=== PATIENT | male | born 1990 | race Caucasian/White ===

== ENCOUNTER 2017-11-19 15:48 | Inpatient (IN) | payer OTHER ==
[2017-11-19] MEDS ORDERED: NACL 0.9% 3 ML SYG IV (17:00)
[2017-11-19] MEDS ORDERED: DOCUSATE SODIUM 100 MG CAP PO (17:00)
[2017-11-19] MEDS ORDERED: VANCOMYCIN IV PER PHARMACY XX (17:00)
[2017-11-19] MEDS ORDERED: MAGNESIUM HYDROXIDE 30ML CUP PO (17:00)
[2017-11-19] MEDS ORDERED: ACETAMINOPHEN 325 MG TAB PO (17:00)
[2017-11-19] MEDS ORDERED: morphine 2 MG INJ (17:03)
[2017-11-19] MEDS: ONDANSETRON 4 MG INJ IV (17:05)
[2017-11-19] MEDS: SOD CHLORIDE 0.9% 1,000 ML IV (17:05)
[2017-11-19] MEDS: morphine 2 MG INJ IV ×2 (17:14→21:36)
[2017-11-19] MEDS: LORAZEPAM 2 MG INJ IV (17:51)
[2017-11-19] MEDS: VANCOMYCIN 2 GM in SOD CHLORIDE 0.9% 500 ML IVPB (18:22)
[2017-11-19 18:32] LABS: CREATININE 1.17 mg/dl (0.61-1.24)
[2017-11-19 18:32] LABS: BLOOD UREA NITROGEN 21 mg/dl (7-20)
[2017-11-19] MEDS: NICOTINE (21 MG/24 HR) PATCH TRANSDERM (21:34)
[2017-11-20] MEDS: LORAZEPAM 2 MG INJ IV ×2 (01:03→11:45)
[2017-11-20] MEDS: SOD CHLORIDE 0.9% 1,000 ML IV ×2 (03:00→11:56)
[2017-11-20] MEDS: VANCOMYCIN 1 GM 250 ML IVPB ×2 (03:59→11:56)
[2017-11-20 06:07] LABS: ADD MAN DIFF? NO
[2017-11-20 06:12] LABS: WHITE BLOOD COUNT 4.1 10^3/ul (4.8-10.8)
[2017-11-20 06:12] LABS: ABNORMAL IP MESSAGE 1; BASOPHILS % 0.5 % (0.0-2.0); EOSINOPHILS # 0.2 10^3/ul (0.0-0.5); EOSINOPHILS % 4.4 % (0.0-7.0); HEMATOCRIT 27.4 % (42.0-52.0); HEMOGLOBIN 9.1 g/dl (14.0-18.0); LYMPHOCYTES # 1.1 10^3/ul (0.8-2.9); LYMPHOCYTES % 25.9 % (15.0-51.0); MEAN CORPUSCULAR HEMOGLOBIN 28.9 pg (29.0-33.0); MEAN CORPUSCULAR HGB CONC 33.2 g/dl (32.0-37.0); MEAN PLATELET VOLUME 9.7 fl (7.4-10.4); MONOCYTE # 0.5 10^3/ul (0.3-0.9); MONOCYTES % 11.8 % (0.0-11.0); NEUTROPHIL # 2.3 10^3/ul (1.6-7.5); NEUTROPHILS % 57.2 % (39.0-77.0); PLATELET COUNT 63 10^3/UL (140-415); POSITIVE DIFF @See below; RED BLOOD COUNT 3.15 10^6/ul (4.70-6.10); RED CELL DISTRIBUTION WIDTH 17.5 % (11.5-14.5)
[2017-11-20 06:39] LABS: ALANINE AMINOTRANSFERASE 55 IU/L (13-69); ALBUMIN 3.4 g/dl (3.3-4.9); ALBUMIN/GLOBULIN RATIO 0.89; ALKALINE PHOSPHATASE 130 IU/L (42-121); ANION GAP 14 (8-16); ASPARTATE AMINO TRANSFERASE 171 IU/L (15-46); BLOOD UREA NITROGEN 15 mg/dl (7-20); CALCIUM 9.2 mg/dl (8.4-10.2); CARBON DIOXIDE 24 mmol/L (21-31); CHLORIDE 109 mmol/L (97-110); GLUCOSE 88 mg/dl (70-220); MAGNESIUM 1.7 mg/dl (1.7-2.5); PHOSPHORUS 4.8 mg/dl (2.5-4.9); SODIUM 142 mmol/L (135-144); TOTAL PROTEIN 7.2 g/dl (6.1-8.1)
[2017-11-20 06:54] LABS: HEMOGLOBIN A1C 4.8 % (0-5.9)
[2017-11-20] MEDS: morphine 2 MG INJ IV (08:41)
[2017-11-20] MEDS: ENOXAPARIN 40 MG/0.4 ML SYG SC (08:44)
[2017-11-20] MEDS: NICOTINE (21 MG/24 HR) PATCH TRANSDERM (08:45)
[2017-11-20] MEDS: HYDROCODONE/APAP (5/325) TAB PO ×2 (15:43→21:18)
[2017-11-20] MEDS ORDERED: HYDROCODONE/APAP (5/325) TAB PO (16:00)
[2017-11-20] MEDS: ALPRAZOLAM 0.25 MG TAB PO (16:58)
[2017-11-21] MEDS: ALPRAZOLAM 0.25 MG TAB PO ×3 (03:35→22:27)
[2017-11-21 05:40] LABS: ADD MAN DIFF? NO
[2017-11-21 05:43] LABS: ABNORMAL IP MESSAGE 1; BASOPHILS % 0.5 % (0.0-2.0); EOSINOPHILS # 0.2 10^3/ul (0.0-0.5); EOSINOPHILS % 4.1 % (0.0-7.0); HEMATOCRIT 24.3 % (42.0-52.0); HEMOGLOBIN 7.9 g/dl (14.0-18.0); LYMPHOCYTES # 1.1 10^3/ul (0.8-2.9); LYMPHOCYTES % 27.6 % (15.0-51.0); MEAN CORPUSCULAR HEMOGLOBIN 28.2 pg (29.0-33.0); MEAN CORPUSCULAR HGB CONC 32.5 g/dl (32.0-37.0); MEAN CORPUSCULAR VOLUME 86.8 fl (82.0-101.0); MEAN PLATELET VOLUME 9.7 fl (7.4-10.4); MONOCYTE # 0.5 10^3/ul (0.3-0.9); MONOCYTES % 11.6 % (0.0-11.0); NEUTROPHIL # 2.2 10^3/ul (1.6-7.5); NEUTROPHILS % 55.9 % (39.0-77.0); PLATELET COUNT 61 10^3/UL (140-415); POSITIVE DIFF @See below; RED CELL DISTRIBUTION WIDTH 17.3 % (11.5-14.5)
[2017-11-21 05:43] LABS: WHITE BLOOD COUNT 3.9 10^3/ul (4.8-10.8)
[2017-11-21 05:59] LABS: ALANINE AMINOTRANSFERASE 55 IU/L (13-69); ALBUMIN 3.3 g/dl (3.3-4.9); ALBUMIN/GLOBULIN RATIO 0.91; ALKALINE PHOSPHATASE 147 IU/L (42-121); ANION GAP 16 (8-16); ASPARTATE AMINO TRANSFERASE 151 IU/L (15-46); BILIRUBIN,INDIRECT 0.8 mg/dl (0-1.1); BILIRUBIN,TOTAL 0.8 mg/dl (0.2-1.3); BLOOD UREA NITROGEN 15 mg/dl (7-20); CALCIUM 9.1 mg/dl (8.4-10.2); CARBON DIOXIDE 25 mmol/L (21-31); CHLORIDE 107 mmol/L (97-110); CREATININE 0.83 mg/dl (0.61-1.24); GLUCOSE 78 mg/dl (70-220); POTASSIUM 4.4 mmol/L (3.5-5.1); SODIUM 144 mmol/L (135-144); TOTAL PROTEIN 6.9 g/dl (6.1-8.1)
[2017-11-21] MEDS: HYDROCODONE/APAP (5/325) TAB PO ×3 (06:12→18:38)
[2017-11-21] MEDS: NICOTINE (21 MG/24 HR) PATCH TRANSDERM (08:43)
[2017-11-21] MEDS: DULOXETINE 30 MG CAP DR PO (11:10)
[2017-11-21] MEDS: morphine 2 MG INJ IV ×2 (15:54→20:32)
[2017-11-21 16:35] LABS: URIC ACID 4.3 mg/dl (3.1-7.9)
[2017-11-21] MEDS: CEPHALEXIN 500 MG CAP PO (17:43)
[2017-11-22] MEDS: CEPHALEXIN 500 MG CAP PO ×3 (00:33→11:16)
[2017-11-22] MEDS: morphine 2 MG INJ IV ×3 (00:33→08:21)
[2017-11-22 06:14] LABS: ADD MAN DIFF? NO
[2017-11-22 06:18] LABS: ABNORMAL IP MESSAGE 1; BASOPHILS % 0.9 % (0.0-2.0); EOSINOPHILS # 0.2 10^3/ul (0.0-0.5); EOSINOPHILS % 4.8 % (0.0-7.0); HEMATOCRIT 25.1 % (42.0-52.0); HEMOGLOBIN 8.4 g/dl (14.0-18.0); LYMPHOCYTES # 1.1 10^3/ul (0.8-2.9); LYMPHOCYTES % 30.2 % (15.0-51.0); MEAN CORPUSCULAR HEMOGLOBIN 29.3 pg (29.0-33.0); MEAN CORPUSCULAR HGB CONC 33.5 g/dl (32.0-37.0); MEAN CORPUSCULAR VOLUME 87.5 fl (82.0-101.0); MEAN PLATELET VOLUME 10.7 fl (7.4-10.4); MONOCYTE # 0.3 10^3/ul (0.3-0.9); MONOCYTES % 9.4 % (0.0-11.0); NEUTROPHIL # 1.9 10^3/ul (1.6-7.5); NEUTROPHILS % 54.4 % (39.0-77.0); PLATELET COUNT 62 10^3/UL (140-415); POSITIVE DIFF @See below; RED BLOOD COUNT 2.87 10^6/ul (4.70-6.10); RED CELL DISTRIBUTION WIDTH 17.3 % (11.5-14.5)
[2017-11-22 06:18] LABS: WHITE BLOOD COUNT 3.5 10^3/ul (4.8-10.8)
[2017-11-22] MEDS: NICOTINE (21 MG/24 HR) PATCH TRANSDERM (08:17)
[2017-11-22] MEDS: DULOXETINE 30 MG CAP DR PO (08:17)
[2017-11-22] MEDS: FOLIC ACID 1 MG TAB PO (09:30)
[2017-11-22] MEDS: METHADONE 5 MG TAB PO (09:30)
[2017-11-22] MEDS: THIAMINE 100 MG TAB PO (09:30)
[2017-11-22] MEDS: HYDROCODONE/APAP (5/325) TAB PO (10:06)
[2017-11-22 10:14] LABS: HEPATITIS B SURFACE ANTIGEN NEGATIVE (NEGATIVE)
[2017-11-22 10:31] LABS: HEPATITIS C VIRAL ANTIBODY NEGATIVE (NEGATIVE)
[2017-11-22] MEDS: ALPRAZOLAM 0.25 MG TAB PO (11:16)
[2017-11-22] MEDS: CYANOCOBALAMIN 1000 MCG INJ IM (11:16)
== END 2017-11-22 13:15 | disposition left against medical advice (07) | DRG 603 ==
LOC: PP2 15:48
PROVIDERS: Internal Medicine
DX: L03.116 Cellulitis of left lower limb (principal); D61.818 Other pancytopenia; F33.2 Major depressive disorder, recurrent severe without psychotic features; K70.30 Alcoholic cirrhosis of liver without ascites; Z72.0 Tobacco use; G89.4 Chronic pain syndrome; F10.10 Alcohol abuse, uncomplicated
CPT/HCPCS: 80053; 82565; 83036; 83735; 84100; 84520; 84560; 85025; 86708; 86803; 87081; 87340; 93970; G0378

== ENCOUNTER 2017-11-23 19:08 | Emergency (ER) | payer OTHER ==
[2017-11-23] MEDS: FAMOTIDINE 20 MG TAB PO (20:59)
[2017-11-23] MEDS: ONDANSETRON (ODT) 4 MG TAB ODT (20:59)
[2017-11-23 21:20] LABS: ADD MAN DIFF? NO
[2017-11-23 21:21] LABS: WHITE BLOOD COUNT 4.6 10^3/ul (4.8-10.8)
[2017-11-23 21:21] LABS: ABNORMAL IP MESSAGE 1; BASOPHILS % 0.7 % (0.0-2.0); EOSINOPHILS # 0.2 10^3/ul (0.0-0.5); EOSINOPHILS % 3.9 % (0.0-7.0); HEMATOCRIT 27.6 % (42.0-52.0); HEMOGLOBIN 9.2 g/dl (14.0-18.0); LYMPHOCYTES # 1.2 10^3/ul (0.8-2.9); MEAN CORPUSCULAR HEMOGLOBIN 28.9 pg (29.0-33.0); MEAN CORPUSCULAR HGB CONC 33.3 g/dl (32.0-37.0); MEAN CORPUSCULAR VOLUME 86.8 fl (82.0-101.0); MEAN PLATELET VOLUME 10.9 fl (7.4-10.4); MONOCYTE # 0.4 10^3/ul (0.3-0.9); NEUTROPHIL # 2.8 10^3/ul (1.6-7.5); NEUTROPHILS % 61.2 % (39.0-77.0); PLATELET COUNT 82 10^3/UL (140-415); POSITIVE DIFF @See below; RED BLOOD COUNT 3.18 10^6/ul (4.70-6.10); RED CELL DISTRIBUTION WIDTH 17.2 % (11.5-14.5)
[2017-11-23 21:38] LABS: ALANINE AMINOTRANSFERASE 63 IU/L (13-69); ALBUMIN/GLOBULIN RATIO 0.97; ALKALINE PHOSPHATASE 156 IU/L (42-121); ANION GAP 12 (8-16); ASPARTATE AMINO TRANSFERASE 112 IU/L (15-46); BILIRUBIN,INDIRECT 0.9 mg/dl (0-1.1); BILIRUBIN,TOTAL 0.9 mg/dl (0.2-1.3); BLOOD UREA NITROGEN 13 mg/dl (7-20); CALCIUM 9.1 mg/dl (8.4-10.2); CARBON DIOXIDE 27 mmol/L (21-31); CHLORIDE 104 mmol/L (97-110); CREATININE 0.78 mg/dl (0.61-1.24); GLUCOSE 83 mg/dl (70-220); SODIUM 139 mmol/L (135-144); TOTAL PROTEIN 8.1 g/dl (6.1-8.1)
== END 2017-11-23 22:05 | disposition home or self-care (01) ==
LOC: FTE 19:08
DX: G89.4 Chronic pain syndrome (principal); D64.9 Anemia, unspecified; I10 Essential (primary) hypertension; F17.210 Nicotine dependence, cigarettes, uncomplicated
CPT/HCPCS: 80053; 85025; 99283